=== PATIENT | female | born 1995 | race Two or more races ===

== ENCOUNTER 2021-05-21 07:45 | Day surgery (SDC) | payer OTHER ==
[~2021-05-21 07:45] MED LIST: DOXY PO
== END 2021-05-21 19:45 | disposition home or self-care (01) ==
LOC: CIR.AMB 07:45
PROVIDERS: ATTEND Obstetrics & Gynecology
DX: O03.4 Incomplete spontaneous abortion without complication (principal); Z20.822 Contact with and (suspected) exposure to COVID-19